=== PATIENT | female | born 1995 | race Caucasian/White ===

== ENCOUNTER 2021-08-19 16:59 | Emergency (ER) | payer SELFPAY ==
[2021-08-19 18:36] LABS: BASOPHIL 0.3 % (0-2); HCT 42.7 % (37.0-47.0); HGB 14.4 g/dl (12.5-16.0); LYMPHOCYTE 24.8 % (15-48); MCH 31.6 pg (25.0-31.0); MCHC 33.7 g/dL (32.0-36.0); MCV 93.8 fL (78.0-100.0); MONOCYTE 4.1 % (0-12); MPV 10.4 fL (6.0-9.5); NEUTROPHIL 69.4 % (41-80); NRBC 0; PLT 256 K/uL (150-400); RBC 4.55 M/uL (4.20-5.40); RDW 13.9 % (11.5-14.0); WBC 9.5 K/uL (4.0-10.5)
[2021-08-19 18:58] LABS: BUN/CREAT RATIO (CALC) 13.3 RATIO; CREATININE 1.05 mg/dL (0.51-0.95); FT4 (FREE T4) 1.3 ng/dL (0.76-1.46); POTASSIUM 3.8 mmol/L (3.5-5.1)
[2021-08-19 19:06] LABS: BILIRUBIN NEGATIVE (NEGATIVE); BLOOD NEGATIVE Ery/uL (NEGATIVE); CLARITY CLEAR (CLEAR); COLOR YELLOW (YELLOW); GLUCOSE (U) NORMAL (NORMAL); LEUKOCYTES NEGATIVE Leu/uL (NEGATIVE); NITRITE NEGATIVE (NEGATIVE); PROTEIN NEGATIVE (NEGATIVE); UROBILINOGEN 0.2 mg/dL (0.2-1.0)
[2021-08-19 19:09] LABS: AMPHETAMINES NEGATIVE (NEGATIVE); BARBITURATES NEGATIVE (NEGATIVE); ECSTASY (MDMA) NEGATIVE (NEGATIVE); MARIJUANA (THC) POSITIVE (NEGATIVE); METHADONE NEGATIVE (NEGATIVE); OPIATES NEGATIVE (NEGATIVE); OXYCODONE NEGATIVE (NEGATIVE)
== END 2021-08-19 20:29 | disposition home or self-care (01) ==
LOC: FER 16:59
PROVIDERS: Nurse Practitioner Family
DX: R55 Syncope and collapse (principal); R42 Dizziness and giddiness; I10 Essential (primary) hypertension; Z88.6 Allergy status to analgesic agent
CPT/HCPCS: 36415; 71046; 80048; 80305; 81003; 84439; 84443; 84484; 85025; 85379; 93005; J7030

== ENCOUNTER 2022-02-20 13:58 | Emergency (ER) | payer OTHER ==
[~2022-02-20] VITALS: Ht 162.6 cm; Wt 90.7 kg
[2022-02-20 15:57] LABS: BASOPHIL 0.4 % (0-2); HCT 46.9 % (37.0-47.0); HGB 16.3 g/dl (12.5-16.0); LYMPHOCYTE 24.9 % (15-48); MCH 31.7 pg (25.0-31.0); MCHC 34.8 g/dL (32.0-36.0); MCV 91.1 fL (78.0-100.0); MONOCYTE 4.8 % (0-12); MPV 10.8 fL (6.0-9.5); NEUTROPHIL 68.8 % (41-80); NRBC 0; PLT 251 K/uL (150-400); RBC 5.15 M/uL (4.20-5.40); RDW 13.2 % (11.5-14.0); WBC 7.3 K/uL (4.0-10.5)
[2022-02-20 16:16] LABS: ALBUMIN 4.8 g/dL (3.4-5.0); BILIRUBIN - TOTAL 1.3 mg/dL (0.2-1.0); BUN/CREAT RATIO (CALC) 12.9 RATIO; CREATININE 1.39 mg/dL (0.51-0.95); GLOBULIN (CALCULATION) 3.9 g/dL; POTASSIUM 3.6 mmol/L (3.5-5.1); TOTAL PROTEIN 8.7 g/dL (6.4-8.2)
[2022-02-20 16:49] LABS: BILIRUBIN NEGATIVE (NEGATIVE); BLOOD TRACE-INTACT Ery/uL (NEGATIVE); CLARITY CLEAR (CLEAR); COLOR YELLOW (YELLOW); GLUCOSE (U) NORMAL (NORMAL); LEUKOCYTES NEGATIVE Leu/uL (NEGATIVE); NITRITE NEGATIVE (NEGATIVE); PROTEIN NEGATIVE (NEGATIVE); UROBILINOGEN 0.2 mg/dL (0.2-1.0)
[2022-02-20 16:54] LABS: AMPHETAMINES NEGATIVE (NEGATIVE); BARBITURATES NEGATIVE (NEGATIVE); ECSTASY (MDMA) NEGATIVE (NEGATIVE); MARIJUANA (THC) NEGATIVE (NEGATIVE); METHADONE NEGATIVE (NEGATIVE); OPIATES NEGATIVE (NEGATIVE); OXYCODONE NEGATIVE (NEGATIVE)
[2022-02-20] MEDS ORDERED: ONDANSETRON ODT4 MG PO (17:52)
== END 2022-02-20 18:12 | disposition home or self-care (01) ==
LOC: FER 13:58
PROVIDERS: Physician Assistant
DX: R11.10 Vomiting, unspecified (principal); R19.7 Diarrhea, unspecified; R10.9 Unspecified abdominal pain; E03.9 Hypothyroidism, unspecified; I10 Essential (primary) hypertension; Z88.6 Allergy status to analgesic agent; Z79.890 Hormone replacement therapy; Z79.899 Other long term (current) drug therapy
CPT/HCPCS: 36415; 80053; 80305; 81001; 83690; 84484; 85025; 93005; J2765; J7030